=== PATIENT | female | born 1990 | race Caucasian/White ===

== ENCOUNTER 2016-04-28 18:00 | Emergency (ER) | payer MEDICAID, OTHER ==
[~2016-04-28] VITALS: Ht 172.7 cm; Wt 88.6 kg
[2016-04-28 18:05] VITALS: BP 157/99; PULSE 118; RESP 16; O2SAT 99
[2016-04-28 18:37] LABS: BASOPHILS % (AUTO) 0.5 % (0-3); EOSINOPHILS % (AUTO) 0.6 % (0-5); MONOCYTES % (AUTO) 5.8 % (4-12); Mean Corpuscular Hemoglobin 28.4 pg (27.0-35.0); Mean Corpuscular Volume 83.2 fL (81-100); NEUTROPHILS % (AUTO) 62.7 % (40-74); Platelet Count 275 bil/L (150-400)
--- NOTE | 2016-04-28 19:06 | ED.REPORT ---
HPI-General Illness Date of Service Apr 28, 2016 ED Provider: Dr. Lucio Carreon MD A 26 year old female presents to the ED complaining of nausea that began last night. She describes the nausea as a "pit" in her stomach. Patient has also been experiencing generalized malaise and blurred vision since onset. She states that she felt as if her "BP was high" and they later recorded her BP at 161/101. Symptoms have been constant since onset. She denies fever, rhinorrhea, headache, vomiting, sore throat, dyspnea or SOB. Her symptoms were not exacerbated after eating boiled egg and coffee. She denies any chance of . Nursing Notes Stated Complaint: NAUSEA Chief Complaint: General Complaint Nursing Notes Reviewed: Yes Allergies: Coded Allergies: Penicillins (Unverified Allergy, Unknown, 07/13/10) General Time Seen by MD: 19:06 Chief Complaint Other (Nausea) Hx Obtained From: Patient Arrived By: Walk-in Sudden in Onset?: No Onset Occurred: Yesterday Symptom Duration: Since onset Location: No: Head Associated with: Reports: Nausea, Denies: Congestion, Fever, Headache, Vomiting Pertinent Negative: Pt denies other symptoms Recent Healthcare: No recent hospitalization, Recent doctor visit Past Medical History Past Medical History None reported. Past Surgical History [place] Teeth Reports: Smoking History Unknown if Ever Smoker Social History Other Social History: Good social support, Local resident Occupation Patient works at hospital [employer] Ambulatory Status Independent Review of Systems Full Review of Systems Constitutional: Denies: Chills, Fever Ears / Nose / Throat: Denies: Nasal congestion, Sore throat Respiratory: Denies: Dyspnea on exertion, Shortness of breath GI: Reports: Nausea, Denies: Vomiting Allergy / Immune: Denies: Rhinorrhea Neurologic: Denies: Change LOC, Headache Complete sys rev & neg: except as marked. Physical Exam Vital Signs Vital Signs Date Time Temp Pulse Resp B/P Pulse Ox O2 Delivery O2 Flow Rate FiO2 04/28/16 21:08 90 16 138/67 100 Room Air 04/28/16 20:43 118 22 140/48 98 Nasal Cannula 2 04/28/16 18:05 36.8 118 16 157/99 99 Initial VS: Reviewed Skin: Warm, Dry, No cyanosis Neurologic: Alert, Oriented, Nonfocal Psychiatric: Mood/affect normal, Behavior normal, Normal thought content General/Constitutional: Awake, Alert Head / Eyes: Atraumatic, Normocephalic, PERRL Respiratory / Chest: Atraumatic, Breath sounds NL, Breath sounds = bilat Cardiovascular: Regular rhythm, Heart sounds NL Heart Rate / Rhythm: Positive: Tachycardia (Mild) Abdomen: Atraumatic, Soft, Non-tender Upper Extremities Upper Extremity / MS: Atraumatic, Inspection NL, Neurologic intact, Vascular intact Lower Extremity / Pelvis / MS: Atraumatic, Inspection NL, Neurologic intact, Vascular intact Interpretation & Diagnostics Lab Results Interpretation Result Diagram: 04/28/16 1820 04/28/16 1820 Test 04/28/16 18:20 04/28/16 19:00 04/28/16 21:35 White Blood Count 8.8th/mm3 (3.8-10.1) Red Blood Count 4.75mil/mm3 (3.90-5.20) Hemoglobin 13.5g/dL (12.0-15.6) Hematocrit 39.5% (35.0-46.0) Mean Corpuscular Volume 83.2fL (81-100) Mean Corpuscular Hemoglobin 28.4pg (27.0-35.0) Mean Corpuscular Hemoglobin Concent 34.2% (32.0-37.0) Red Cell Distribution Width 12.8% (12.3-15.4) Platelet Count 275bil/L (150-400) Neutrophils (%) (Auto) 62.7% (40-74) Lymphocytes (%) (Auto) 30.3% (14-46) Monocytes (%) (Auto) 5.8% (4-12) Eosinophils (%) (Auto) 0.6% (0-5) Basophils (%) (Auto) 0.5% (0-3) D-Dimer < 0.5mg/L (<0.50) Sodium Level 137mEq/L (134-144) Potassium Level 3.6mEq/L (3.5-5.2) Chloride Level 100mEq/L (97-108) Carbon Dioxide Level 23mmol/L (18-29) Blood Urea Nitrogen 15mg/dL (6-20) Creatinine 0.75mg/dL (0.57-1.00) Estimat Glomerular Filtration Rate 132mL/min (>59) Glucose Level 104mg/dL (60-99) Calcium Level 9.3mg/dL (8.5-10.1) Total Bilirubin 0.3mg/dL (0.0-1.2) Aspartate Amino Transf (AST/SGOT) 17U/L (0-50) Alanine Aminotransferase (ALT/SGPT) 17U/L (0-32) Alkaline Phosphatase 51U/L (25-150) Total Protein 7.9g/dL (6.4-8.4) Albumin 4.7g/dL (3.4-5.0) Hold Gregorio Top Tube Received (Received) Urine Color Yellow (YELLOW) Urine Appearance Clear (CLEAR,HAZY) Urine pH 6.5 (5.0-8.0) Urine Specific [place] 1.020 (1.003-1.035) Urine Protein Negativemg/dL (NEG,TRACE) Urine Glucose (UA) Negativemg/dL (NEGATIVE) Urine Ketones Negativemg/dL (NEGATIVE) Urine Occult Blood Negative (NEGATIVE) Urine Nitrite Negative (NEGATIVE) Urine Bilirubin Negative (NEGATIVE) Urine Urobilinogen Normalmg/dL (NORMAL) Urine Leukocyte Esterase Negative (NEGATIVE) Urine RBC 0-2/hpf (0-2) Urine WBC 0-5/hpf (0-5) Urine Epithelial Cells Occasional/hpf (NONE-MOD) Urine Crystals None seen (NONE SEEN) Urine Bacteria Few/hpf (NONE-FEW) Urine Hyaline Casts None/lpf (NONE) Urine Granular Casts None seen (NONE SEEN) Urine Waxy Casts None seen (NONE SEEN) Urine Red Blood Cell Casts None seen (NONE SEEN) Urine White Blood Cell Casts None seen (NONE SEEN) Urine Mucus Present (None Seen) Urine Trichomonas None seen (NONE SEEN) Urine Yeast None (NONE SEEN) Urinalysis Comment None Urine Culture Reflexed Not indicated Troponin T 0.010ug/L (0.0-0.011) Thyroid Stimulating Hormone (TSH) 5.380uIU/mL (0.450-4.500) Pulse Oximetry Interpretation Pulse Oximetry: Pulse Ox normal ECG Interpretation ECG Interpretation: Sinus Rhythm Rate 96 Atrial premature complex Time: 19:33 Interpreted by: ED physician Rhythm Strip Interpretation : Time: 19:45 Rhythm Strip Interpretation: Interpreted by me, Rate (96), Normal sinus rhythm Re-Eval/Medical Decision Med Decision/Clinical Course Healthy 18-year-old female presents with nausea and this pain like sensation in her stomach. When she stands up quickly she started getting a little lightheaded as well. She has not been eating or drinking months due to the nausea. On exam Oriana dehydrated but otherwise a very benign exam. She was hydrated with IV fluids and her nausea was treated with Zofran. She was completely asymptomatic at discharge. The Zofran seemed to work. Her labs were reassuring. Her EKG does not show evidence of an [place]. Serial troponins were negative. D-dimer was negative. I do not feel that emergent imaging is indicated. She does not have any abdominal pains or certainly with CT or ultrasound or got her up she develops any lateralizing or focalizing symptoms then we should consider diagnostics otherwise close outpatient follow-up. Time of Eval: 20:49 Patient Status: Condition improved Re-Evaluation/Progress Note: Patient is rechecked. She is informed of her lab results, EKG results and diagnoses. Time of Eval: 22:47 Patient Status: Condition improved Re-Evaluation/Progress Note: Patient is rechecked. All of the patient's questions are addressed. She understands and agrees with the treatment plan to discharge. Counseled Regarding: Diagnosis, Lab results, Need for follow-up, When/why to return to ED Discharge & Departure Primary Impression: Nausea Disposition: Home Discharge Condition All VS Reviewed: Yes Condition: Stable Patient Instructions: Acute Nausea and Vomiting (ED) Additional Instructions: Thank you for trusting us with your care this evening. Your lab results and EKG results are reassuring. Schedule a follow up appointment with your primary care physician in the next week for a recheck if symptoms have not improved. Consider an ultrasound of her gallbladder or advanced imaging of her abdomen if the symptoms return. For tonight, take 1 Zofran every 6-8 hours as needed for nausea. Eat a clear liquid diet for tonight and check your blood pressure regularly. You may graduate your diet tomorrow. If this leads to pain or return of the symptoms come back to emergency department for a recheck as well. Referrals: Marcia Snowden MD (PCP) Scribe Attestation Portions of this note were transcribed by Dilan Hollis. I, Dr. Carreon personally performed the history, physical exam and medical decision-making; I reviewed and confirmed the accuracy of the information in the transcribed note. Signed by: Lauren Gustafson, 04/28/16 2323. copies to: Marcia Snowden MD, Todd P DO Apr 28, 2016 19:06 DILAN HOLLIS Apr 28, 2016 19:21
[2016-04-28 19:13] LABS: APPEARANCE,URINE CLEAR (CLEAR,HAZY); COLOR,URINE YELLOW (YELLOW); OCCULT BLOOD,URINE NEGATIVE (NEGATIVE); PH,URINE 6.5 (5.0-8.0); UROBILINOGEN,URINE NORMAL (NORMAL)
[2016-04-28] MEDS ORDERED: Ondansetron 2 mg/mL 2 mL Inj IVPUSH PRN (19:20)
[2016-04-28] MEDS ORDERED: 0.9% Sodium Chloride 1,000 ML IV SCH (19:20)
[2016-04-28 20:43] VITALS: BP 140/48; PULSE 118; RESP 22; O2SAT 98
[2016-04-28 21:08] VITALS: BP 138/67; PULSE 90; RESP 16; O2SAT 100
[2016-04-28] MEDS ORDERED: _Ondansetron ODT 4 mg Tablet PO PRN (21:20)
[2016-04-28] MEDS ORDERED: 0.9% Sodium Chloride 1,000 ML IV ONE (21:45)
== END 2016-04-28 20:45 | disposition home or self-care (01) ==
LOC: SED 18:00
DX: R11.0 Nausea (principal); H53.8 Other visual disturbances; R53.81 Other malaise; Z88.0 Allergy status to penicillin
CPT/HCPCS: 36415; 80053; 81000; 81025; 84443; 84484; 85025; 85379; 93005; 96361; 96374; 99285; J2405; J7030